=== PATIENT | male | born 2000 | race Hispanic/Latino ===

== ENCOUNTER 2024-10-14 20:51 | Emergency (ER) | payer BC ==
[2024-10-14] MEDS ORDERED: diphenhydrAMINE 25 MG CAP ONE (21:53)
[2024-10-14] MEDS ORDERED: Ondansetron PF 4 MG/2 ML Vial ONE (22:06)
[2024-10-14] MEDS ORDERED: Ketorolac Tromethamine 30 MG (1 mL) VIAL ONE (22:06)
== END 2024-10-14 22:42 | disposition home or self-care (01) ==
LOC: CSHERS 20:51
DX: T78.40XA Allergy, unspecified, initial encounter (principal)
CPT/HCPCS: 96372; 99282; J1885; J2405; J2919

== ENCOUNTER 2024-10-31 15:06 | Emergency (ER) | payer BC ==
[2024-10-31] MEDS ORDERED: diphenhydrAMINE 25 MG CAP ONE (15:46)
[2024-10-31] MEDS ORDERED: Famotidine/PF 20 mg/2ml Vial ONE (15:46)
[2024-10-31] MEDS ORDERED: Famotidine 20 MG TAB ONE (15:48)
== END 2024-10-31 16:05 | disposition home or self-care (01) ==
LOC: CSHERS 15:06
DX: T78.40XA Allergy, unspecified, initial encounter (principal); X58.XXXA Exposure to other specified factors, initial encounter
CPT/HCPCS: 96372; 99282; J2919